=== PATIENT | female | born 1985 | race Caucasian/White ===

== ENCOUNTER → 2017-07-21 | Outpatient (CLI) | payer MEDICAID ==
[~2017-07-21] MED LIST: ACETAMINOPHEN500 M3 PO; ADIPEX-P37.5 MG PO; AMITRIPTYLINE100 M1 PO; AMOXICILLIN 50500 MG PO; AZITHROMYCIN250 MG PO; BACLOFEN 10MG T10 MG PO; BACLOFEN20 MG PO; BACTRIM DS 8001 TAB PO; BENADRYL 25MG C25 MG PO; BUPRENORPHINE H1 TAB SL; CIPRO 500MG TA500 MG PO; DARVOCET A500 51 TAB PO; DARVOCET-N 1001 EACH PO; DOXYCYCLINE100 M1 PO; FIORICET 325 MG1 TAB PO; FLEXERIL10 MG PO; GABAPENTIN100 M1 PO; HYDROCODONE1 TABLET PO; KEFLEX 500MG.500 MG PO; LEVAQUIN500 MG PO; LORTAB 5/500 501 TAB PO; LORTAB 500 MG-71 TAB PO; MEDROL 4MG. DOSE4 MG PO; MOTRIN600 MG PO; NEURONTIN800 MG PO; NOMEDS *; NORCO 325 MG-51 TAB PO; Omeprazole20 MG PO; PERCOCET 5/3251 EACH PO; PREDNISONE 20MG20 MG PO; SEPTRA DS 800 M1 TAB PO; SUBOXONE 8 MG-21 TAB SL; SULFAMETHOXAZOL1 TA6 PO; TESSALON PERLE100 MG PO; TRAZODONE HCL150 MG PO; VIBRAMYCIN 100100 MG PO; VICODIN 5/500 T1 TAB PO; VISTARIL25 MG PO; ZITHROMAX Z-PA250 M1 PO
[2017-07-21 20:07] LABS: BUN 10 mg/dL (7-18)
[2017-07-21 20:08] LABS: GFR (ESTIMATED) 96 ML/MIN (59-)
== END ==
LOC: LAB 17:30
PROVIDERS: Emergency Medicine
DX: R53.83 Other fatigue (principal); I10 Essential (primary) hypertension